=== PATIENT | female | born 1980 | race Hispanic/Latino ===

== ENCOUNTER 2021-04-28 13:19 | Emergency (ER) | payer BC ==
[~2021-04-28] VITALS: Ht 167.6 cm; Wt 85.7 kg
[2021-04-28] MEDS ORDERED: HYDROCODON-ACE1 EA10 PO (16:38)
[2021-04-28] MEDS ORDERED: BACTRIM DS TAB1 EACH PO (16:38)
== END 2021-04-28 17:00 | disposition home or self-care (01) ==
LOC: ED 13:19
DX: N12 Tubulo-interstitial nephritis, not specified as acute or chronic (principal)
CPT/HCPCS: 74176; 80053; 81001; 84703; 85025; 96374; 96375; 99284-25; J1885; J2405; J7030